=== PATIENT | male | born 1995 | race Hispanic/Latino ===

== ENCOUNTER 2022-10-22 13:10 | Emergency (ER) | payer SELFPAY ==
[2022-10-22] MEDS ORDERED: KETOROLAC 30 MG/ML INJ ONE (13:40)
--- NOTE | 2022-10-22 14:08 | RAD REPORT ---
EXAM DESCRIPTION: CT - Pelvis Wo Cont - 10/22/2022 1:51 pm CLINICAL HISTORY: Right hip pain COMPARISON: None. TECHNIQUE: Computed axial tomography of the pelvis was obtained. Coronal and sagittal reconstruction performed All CT scans are performed using dose optimization technique as appropriate and may include automated exposure control or mA/KV adjustment according to patient size. FINDINGS: No fracture or dislocation No bone or joint abnormality noted Significant hip joint effusion not present. Muscles are normal size and density. Subcutaneous tissues unremarkable. IMPRESSION: Unremarkable exam.
--- NOTE | 2022-10-22 14:12 | ER ---
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 Coronavirus screen: Vaccine status: Patient reports receiving the 2nd dose of the covid vaccine. Ebola Screen: Patient negative for fever greater than or equal to 101.5 degrees Fahrenheit, and additional compatible Ebola Virus Disease symptoms Patient denies exposure to infectious person. Patient denies travel to an Ebola-affected area in the 21 days before illness onset. Initial Sepsis Screen: Does the patient meet any 2 criteria? No. Patient's initial sepsis screen is negative. Does the patient have a suspected source of infection? No. Patient's initial sepsis screen is negative. Risk Assessment: Do you want to hurt yourself or someone else? Patient reports no desire to harm self or others. 13:33 Method Of Arrival: Ambulatory [facility] 13:33 Acuity: CASH 4 jh5 13:49 Onset of symptoms was October 21, 2022. em6 Triage Assessment: 13:35 General: Appears in no apparent distress. Behavior is calm, cooperative, appropriate jh5 for age. Pain: Complains of pain in right leg. Historical: - Allergies: 13:35 No Known Allergies; jh5 - PMHx: 13:35 None; [facility] - Immunization history:: Adult Immunizations up to date. - Social history:: Smoking status: Patient denies any tobacco usage or history of. Screenin:50 Abuse screen: Denies threats or abuse. Denies injuries from another. Nutritional db screening: No deficits noted. Tuberculosis screening: No symptoms or risk factors identified. Fall Risk None identified. No fall in past 12 months (0 pts). No secondary diagnosis (0 pts). IV access (20 points). Ambulatory Aid- None/Bed Rest/Nurse Assist (0 pts). Gait- Normal/Bed Rest/Wheelchair (0 pts) Mental Status- Oriented to own ability (0 pts). Total Roach Fall Scale indicates No Risk (0-24 pts). Assessment: 13:49 Reassessment: Patient appears in no apparent distress at this time. Patient and/or db family updated on plan of care and expected duration. Pain level reassessed. Patient is alert, oriented x 3, equal unlabored respirations, skin warm/dry/pink. complains of right leg pain. states pain radiates from hip all the way down. Denies recent injury. States has pain intermittently x 2 years since discharging from the . General: Appears in no apparent distress. comfortable, Behavior is calm, cooperative, appropriate for age, quiet. Pain: Complains of pain in right leg. Neuro: No deficits noted. Level of Consciousness is awake, alert, obeys commands, Oriented to person, place, time, situation, Appropriate for age Speech is normal. Cardiovascular: No deficits noted. Respiratory: No deficits noted. Airway is patent. GI: No deficits noted. No signs and/or symptoms were reported involving the gastrointestinal system. : No deficits noted. No signs and/or symptoms were reported regarding the genitourinary system. Musculoskeletal: Reports pain in right leg. Vital Signs: 13:33 BP 128 / 82; Pulse 18; Resp 16; Temp 98.6; Pulse Ox 100% ; Weight 68.04 kg; Height 5 jh5 ft. 8 in. (172.72 cm); 14:29 BP 126 / 76; Pulse 82; Resp 18; Pulse Ox 100% on R/A; em6 13:33 Body Mass Index 22.81 (68.04 kg, 172.72 cm) jh5 ED Course: 13:23 Patient arrived in ED. mr 13:30 [facility]C [facility] snw 13:30 Brad Cardozo MD is Attending Physician. snw 13:35 Triage completed. jh5 13:35 Arm band placed on right wrist. jh5 13:39 Amber Aquino, NAT is Primary Nurse. db 13:49 Bed in low position. Call light in reach. Side rails up X2. Pulse ox on. NIBP on. Warm em6 blanket given. 13:53 CT Pelvis wo Cont In Process Unspecified. EDMS 14:30 No provider procedures requiring assistance completed. Patient did not have IV access em6 during this emergency room visit. Administered Medications: 13:44 Drug: Ketorolac 30 mg Route: IM; Site: right deltoid; em6 14:30 Follow up: Response: No adverse reaction em6 Medication: 14:30 VIS not applicable for this client. em6 Outcome: 14:12 Discharge ordered by . meghana 14:30 Discharged to home ambulatory. em6 14:30 Condition: stable 14:30 Discharge instructions given to patient, Instructed on discharge instructions, follow up and referral plans. medication usage, Demonstrated understanding of instructions, follow-up care, medications, Prescriptions given X 1. 14:31 Patient left the ED. em6 Signatures: Dispatcher [employer] EDMS Melinda Sosa, AUTOMATIC SCREWMAKER-C AUTOMATIC SCREWMAKER-Csnw StaffordYamilet Jessica, RN RN jh5 Belkis Morales RN RN em6 Amber Aquino RN RN db
--- NOTE | 2022-10-22 14:12 | EDPHYS ---
Physician Documentation [facility] Name: Nahid Salter Age: 27 yrs Sex: Male : 1995 Arrival Date: 10/22/2022 Time: 13:23 Bed 9 Private MD: ED Physician Brad Cardozo HPI: 10/22 13:45 This 27 yrs old Male presents to ER via Ambulatory with complaints of Leg Pain. snw 13:45 The patient presents with pain, that is chronic. The complaints affect the right lower snw back and right leg. Context: The problem was sustained at home, resulted from an unknown cause, the patient can fully bear weight. Onset: The symptoms/episode began/occurred 2 month(s) ago. Associated signs and symptoms: Pertinent positives: rash, Pertinent negatives calf tenderness, fever, nausea, vomiting. Severity of symptoms: At their worst the symptoms were moderate, severe. The patient has not experienced similar symptoms in the past. saw Dentist, placed on Amoxil. Took 4 doses. Historical: - Allergies: 13:35 No Known Allergies; jh5 - PMHx: 13:35 None; [facility] - Immunization history:: Adult Immunizations up to date. - Social history:: Smoking status: Patient denies any tobacco usage or history of. ROS: 13:45 Constitutional: Negative for fever, chills, and weight loss, Eyes: Negative for injury, snw pain, redness, and discharge, ENT: Negative for injury, pain, and discharge, Neck: Negative for injury, pain, and swelling, Cardiovascular: Negative for chest pain, palpitations, and edema, Respiratory: Negative for shortness of breath, cough, wheezing, and pleuritic chest pain, Abdomen/GI: Negative for abdominal pain, nausea, vomiting, diarrhea, and constipation, Back: Negative for injury and pain, : Negative for injury, bleeding, discharge, and swelling, Skin: Negative for injury, rash, and discoloration, Neuro: Negative for headache, weakness, numbness, tingling, and seizure, Psych: Negative for depression, anxiety, suicide ideation, homicidal ideation, and hallucinations. 13:45 MS/extremity: Positive for pain, of the right lower back and right leg. Exam: 13:44 Constitutional: This is a well developed, well nourished patient who is awake, alert, snw and in no acute distress. Head/Face: Normocephalic, atraumatic. Eyes: Pupils equal round and reactive to light, extra-ocular motions intact. Lids and lashes normal. Conjunctiva and sclera are non-icteric and not injected. Cornea within normal limits. Periorbital areas with no swelling, redness, or edema. ENT: Nares patent. No nasal discharge, no septal abnormalities noted. Tympanic membranes are normal and external auditory canals are clear. Oropharynx with no redness, swelling, or masses, exudates, or evidence of obstruction, uvula midline. Mucous membranes moist. Neck: Trachea midline, no thyromegaly or masses palpated, and no cervical lymphadenopathy. Supple, full range of motion without nuchal rigidity, or vertebral point tenderness. No Meningismus. Chest/axilla: Normal chest wall appearance and motion. Nontender with no deformity. No lesions are appreciated. Cardiovascular: Regular rate and rhythm with a normal S1 and S2. No gallops, murmurs, or rubs. Normal PMI, no JVD. No pulse deficits. Respiratory: Lungs have equal breath sounds bilaterally, clear to auscultation and percussion. No rales, rhonchi or wheezes noted. No increased work of breathing, no retractions or nasal flaring. Abdomen/GI: Soft, non-tender, with normal bowel sounds. No distension or tympany. No guarding or rebound. No evidence of tenderness throughout. Back: No spinal tenderness. No costovertebral tenderness. Full range of motion. Skin: Warm, dry with normal turgor. Normal color with no rashes, no lesions, and no evidence of cellulitis. Neuro: Awake and alert, GCS 15, oriented to person, place, time, and situation. Cranial nerves II-XII grossly intact. Motor strength 5/5 in all extremities. Sensory grossly intact. Cerebellar exam normal. Normal gait. Psych: Awake, alert, with orientation to person, place and time. Behavior, mood, and affect are within normal limits. 13:44 Musculoskeletal/extremity: Extremities: grossly normal except: noted in the right lower back and right leg: tenderness, ROM: intact in all extremities, Circulation is intact in all extremities. Sensation intact. Weight bearing: able to fully bear weight. Vital Signs: 13:33 BP 128 / 82; Pulse 18; Resp 16; Temp 98.6; Pulse Ox 100% ; Weight 68.04 kg; Height 5 jh5 ft. 8 in. (172.72 cm); 14:29 BP 126 / 76; Pulse 82; Resp 18; Pulse Ox 100% on R/A; em6 13:33 Body Mass Index 22.81 (68.04 kg, 172.72 cm) jh5 MDM: 13:37 Patient medically screened. snw 14:12 Data reviewed: vital signs, nurses notes. Data interpreted: Pulse oximetry: on room air snw is 100 %. Interpretation: normal. Counseling: I had a detailed discussion with the patient and/or guardian regarding: the historical points, exam findings, and any diagnostic results supporting the discharge/admit diagnosis, the presence of at least one elevated blood pressure reading (>120/80) during this emergency department visit, radiology results, the need for outpatient follow up, to return to the emergency department if symptoms worsen or persist or if there are any questions or concerns that arise at home. Special discussion: Based on the history and exam findings, there is no indication for further emergent testing or inpatient evaluation. I discussed with the patient/guardian the need to see the back specialist for further evaluation of the symptoms. I discussed with the patient/guardian the need to see the primary care provider for further evaluation of the symptoms. 10/22 13:36 Order name: CT Pelvis wo Cont; Complete Time: 14:10 snw Administered Medications: 13:44 Drug: Ketorolac 30 mg Route: IM; Site: right deltoid; em6 14:30 Follow up: Response: No adverse reaction em6 Disposition: 10/23 07:03 Co-signature as Attending Physician, Brad Cardozo MD. rn Disposition Summary: 10/22/22 14:12 Discharge Ordered Location: Home snw Condition: Stable snw Diagnosis - Lumbago with sciatica, right side snw Followup: snw - With: Private Physician - When: 2 - 3 days - Reason: Recheck today's complaints, Continuance of care, Re-evaluation by your physician Discharge Instructions: - Discharge Summary Sheet snw - Musculoskeletal Pain snw - Sciatica snw Forms: - Medication Reconciliation Form snw - Thank You Letter snw - Antibiotic Education snw - Prescription Opioid Use snw Prescriptions: - Mobic 7.5 mg Oral Tablet - take 1 tablet by ORAL route once daily take with food; 20 tablet; Refills: 0, snw Product Selection Permitted Signatures: Dispatcher [employer] Melinda Mosher, E[employer] SITE IDENTIFICATION SPECIALIST-Abigailw Brad Cardozo MD MD rn Rees, Jessica RN RN jh5 Belkis Morales RN RN em6
[2022-10-22 16:53] VITALS: TEMP 98.6; O2SAT 100
[2022-10-22 16:54] VITALS: BP 126/76
== END 2022-10-22 14:31 | disposition home or self-care (01) ==
LOC: ER 13:10
DX: M54.41 Lumbago with sciatica, right side (principal)
CPT/HCPCS: 72192; 96372; 99284